=== PATIENT | female | born 1940 | race Hispanic/Latino ===

== ENCOUNTER 2017-06-15 07:38 | Outpatient (CLI) | payer MEDICARE ==
[2017-06-15 08:59] LABS: Blood Urea Nitrogen 30 mg/dL (7-17)
--- NOTE | 2017-06-16 14:41 | Cat Scan Report ---
CT CHEST WITH CONTRAST: HISTORY: Carcinoid syndrome. COMPARISON: 04/29/12. TECHNIQUE: Helical CT in 1.25mm intervals following IV contrast. Sagittal and coronal reformatted images. FINDINGS: Thyroid gland: Normal. Tracheobronchial tree: Normal. Esophagus: Normal. Heart: Normal. Pericardium: Normal. Mediastinum: Normal. Lung Leyva: Bilateral pulmonary nodules and masses are again identified with no overwhelming change since 2013. A right middle lobe mass has increased from the 2.1 x 1.3 cm to 3.2 x 1.7 cm. A pleural-based mass in the medial right lower lobe has decreased from 2.4 x 1.5 cm to 2.1 x 1.3 cm. A right infrahilar nodule has increased from 1.1 x 1.2 cm to 1.0 x 1.5 cm. The previously described 3 mm nodule in the superior segment of the right lower lobe is no longer identified. Subpleural nodule in the medial left lower lobe has increased from 8 mm to 10 mm. No new lung nodules/masses are identified. There are mild chronic interstitial changes in the lower lung zones. No evidence for pneumonia. Pleural Spaces: Normal. Musculoskeletal: Advanced thoracic spondylosis is stable. No suspicious bony lesion is identified. IMPRESSION: No overwhelming change is appreciated since 04/29/12 exam. There are approximately 4 nodules in the right lung and one nodule in the left lung which are stable in number. Some of the nodules appear slightly larger and some appear slightly smaller as outlined above. No new areas of disease are appreciated..
--- NOTE | 2017-06-16 14:45 | Cat Scan Report ---
CT ABDOMEN PELVIS WITH CONTRAST: HISTORY: Carcinoid syndrome. COMPARISON: 01/16/12. TECHNIQUE: Helical CT in 1.25mm intervals following IV contrast. Sagittal and coronal reconstructions. FINDINGS: Liver: Normal. Biliary system: Normal. Pancreas: Mild pancreatic atrophy. No focal mass or inflammatory changes. Spleen: Normal. Kidneys/ureters/bladder: Within normal limits. 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 Adrenal glands: Normal. Aorta: Mild diffuse calcifications. No aneurysm or dissection. Intestines: Within normal limits. Appendix: Not visualized, correlate with surgical history. Pelvic viscera: Hysterectomy. Ascites: None. Adenopathy: None. Musculoskeletal: There is advanced lumbar spondylosis but no fracture or suspicious bony lesion. The previous ventral wall hernia repair is suspected. No recurrent hernia is visualized. IMPRESSION: Stable findings in the abdomen and pelvis since 01/16/12. No evidence for recurrent or metastatic disease in the abdomen or pelvis.
== END 2017-06-15 07:39 | disposition home or self-care (01) ==
LOC: CT 07:38
PROVIDERS: ATTEND Internal Medicine Hematology & Oncology
DX: D17.71 Benign lipomatous neoplasm of kidney (principal); E34.0 Carcinoid syndrome; K86.89 Other specified diseases of pancreas; I70.0 Atherosclerosis of aorta; R91.8 Other nonspecific abnormal finding of lung field; M47.896 Other spondylosis, lumbar region; M47.894 Other spondylosis, thoracic region; Z90.710 Acquired absence of both cervix and uterus
CPT/HCPCS: 36415; 71260; 74177; 82565; 84520; Q9967